=== PATIENT | male | born 1970 | race Caucasian/White ===

== ENCOUNTER 2017-05-18 14:23 | Emergency (ER) | payer BC ==
[~2017-05-18] VITALS: Ht 167.6 cm; Wt 94.6 kg
[~2017-05-18 14:23] MED LIST: TYLENOL WITH C1 EACH PO
[2017-05-18] MEDS ORDERED: SKELAXIN800 MG PO (17:32)
[2017-05-18] MEDS ORDERED: MOTRIN600 MG PO (17:32)
[2017-05-18] MEDS ORDERED: NORCO 5/3251 TABLET PO (17:32)
[2017-05-18 17:53] VITALS: BP 147/89
== END 2017-05-18 18:26 | disposition home or self-care (01) ==
LOC: EME 14:23
DX: M75.51 Bursitis of right shoulder (principal); F17.200 Nicotine dependence, unspecified, uncomplicated; Z88.0 Allergy status to penicillin
CPT/HCPCS: 73030; 99281; 99284; J1885

== ENCOUNTER → 2017-07-17 | Outpatient (CLI) | payer BC ==
[~2017-07-17] MED LIST changes: +MOTRIN600 MG PO; +NORCO 5/3251 TABLET PO; +SKELAXIN800 MG PO
== END | disposition home or self-care (01) ==
LOC: CDC 08:18
DX: Z01.810 Encounter for preprocedural cardiovascular examination (principal); S46.011D Strain of muscle(s) and tendon(s) of the rotator cuff of right shoulder, subsequent encounter; M19.011 Primary osteoarthritis, right shoulder; M25.511 Pain in right shoulder; M75.41 Impingement syndrome of right shoulder; I44.0 Atrioventricular block, first degree
CPT/HCPCS: 93000

== ENCOUNTER 2017-07-29 10:41 | Day surgery (SDC) | payer BC ==
[~2017-07-29] VITALS: Ht 175.3 cm; Wt 102.1 kg
[~2017-07-29 10:41] MED LIST changes: +MOBIC7.5 MG PO
[2017-07-29 11:18] VITALS: BP 137/90
[2017-07-29 12:23] LABS: BASOPHIL (%) 0.5 % (0-1); BASOPHIL COUNT 0.1 K/uL (0-0.1); EOSINOPHIL (%) 1.4 % (0-5); EOSINOPHIL COUNT 0.2 K/uL (0-0.3); HEMATOCRIT 42.6 % (38.0-50.0); HEMOGLOBIN 14.3 G/DL (12.5-16.6); IMMATURE GRANULOCYTE (%) 0.5 % (0.0-0.7); LYMPHOCYTE (%) 12.1 % (15-42); LYMPHOCYTE COUNT 1.5 K/uL (1.0-2.8); MCH 31.1 PG (29.0-34.0); MCHC 33.6 G/DL (30.0-36.0); MCV 92.6 FL (86-99); MONOCYTE (%) 5.4 % (3-12); MONOCYTE COUNT 0.7 K/uL (0-0.8); NEUTROPHIL (%) 80.1 % (45-76); NEUTROPHIL COUNT 10.1 K/uL (1.8-6.4); PLATELET COUNT 244 K/uL (156-360); RBC DIS.WIDTH-CV 13.1 % (11.8-14.6); RBC DIS.WIDTH-SD 44.6 % (39-53); WHITE BLOOD COUNT 12.6 K/uL (4.1-10.2)
[2017-07-29 17:31] VITALS: BP 137/89
[2017-07-29 18:19] VITALS: BP 130/80
== END 2017-07-29 18:23 | disposition home or self-care (01) ==
LOC: SDC
PROVIDERS: Anesthesiology
DX: M75.41 Impingement syndrome of right shoulder (principal); M75.101 Unspecified rotator cuff tear or rupture of right shoulder, not specified as traumatic; M19.011 Primary osteoarthritis, right shoulder; R94.31 Abnormal electrocardiogram [ECG] [EKG]; Z88.0 Allergy status to penicillin; F17.200 Nicotine dependence, unspecified, uncomplicated
CPT/HCPCS: 85025; C1713; J0171; J0330; J0690; J1100; J2250; J2405; J2710; J2795; J7643